=== PATIENT | male | born 1945 | race Caucasian/White ===

== ENCOUNTER 2024-03-17 12:38 | Emergency (ER) | payer MEDICARE, SELFPAY ==
--- NOTE | ~2024-03-17 | CT_ITS ---
EXAMINATION: CT abdomen pelvis w con DATE: 03/17/2024 18:39 INDICATION: Abdominal pain. TECHNIQUE: Computed tomography (CT) of the abdomen and pelvis was performed with 100 mL Omnipaque 350 intravenous contrast. Automated exposure control and iterative reconstruction technique were employe d. The dose-length product was 686.59 mGy-cm. COMPARISON: Abdomen ultrasound 03/17/2024 FINDINGS: The visualized portions of the lung bases demonstrate mild atelectasis. There are airspace opacities with air bronchograms in right lower lobe, consistent with pneumonia. No pleural effusion. The heart size is normal. There are coronary artery calcifications. No pericardial effusion. There ar e cysts in the liver measuring up to 7 mm. There are gallstones in the gallbladder, which is normal i n size. The common duct is mildly dilated to 9 mm. The spleen, pancreas, and adrenal glands are jose l. There are cysts in the kidneys measuring up to 14 mm on the right. The prostate is mildly enlarged . There are bilateral inguinal hernias containing fat. There is diverticulosis of the colon without e vidence of diverticulitis. There are no dilated loops of bowel. The appendix is normal. There are no pathologically enlarged lymph nodes. There is no free intraperitoneal fluid. There is a supraumbilica l ventral hernia containing fat. There is mild thoracic and lumbar spondylosis. IMPRESSION: 1. Right lower lobe pneumonia. 2. Mildly dilated common duct. 3. Supraumbilical ventral hernia containing fat. Reviewed, dictated and finalized at location A. ER CUTTER
--- NOTE | ~2024-03-17 | US_ITS ---
EXAMINATION: US abdomen limited DATE: 03/17/2024 17:13 INDICATION: Right upper quadrant abdominal pain. TECHNIQUE: Multiple grayscale and Doppler ultrasound images of the abdomen were obtained. COMPARISON: None FINDINGS: The visualized portions of the head, body, and tail of the pancreas are normal. The liver i s normal without focal lesion. There is normal flow in main portal vein. The gallbladder is normal si ze contains sludge. No gallstones or gallbladder wall thickening.. The common duct is normal and david ures 5 mm. IMPRESSION: 1. Gallbladder sludge. No evidence of acute cholecystitis. Reviewed, dictated and finalized at location A. FORMER
[2024-03-17 13:06] VITALS: BP 141/44; PULSE 82; RESP 20; TEMP 36.6; O2SAT 98
--- NOTE | 2024-03-17 14:09 | ED_ITS ---
HPI - General Adult General Chief complaint: Abdominal Pain Stated complaint: abd pain Time Seen by Provider: 03/17/24 14:09 Focused HPI: Guille Grande is a 78 y/o male who presents with today with reports of waking up with mid abdominal pain, he also states that he is having all over joint pain that started today. He states he went to see his mom here in the hospital and felt like he was going to pass out so he came down here. His last BM was today - he states it feels like he needs to have a BM but cant / states he feels nausea but has not vomited Denies chest pain / denies SOB - hx of htn GENERAL: Well-appearing, well-nourished, and in no acute distress. HEAD: Normocephalic, atraumatic. CHEST: Clear to auscultation. ?No respiratory distress. HEART: Regular rate and rhythm.? NEURO: ?Alert and oriented x3. ABD- abdomen soft/ bowel sounds present pain to the mid abdomen Patient screened in triage and initial orders placed.? ?Additional care and disposition to be based upon?diagnostic testing and treatment. Related Data Allergies Allergy/AdvReac Type Severity Reaction Status Date / Time No Known Allergies Allergy Verified 03/17/24 12:39 Course Vital Signs Vital signs: Vital Signs Temperature 36.6 C 03/17/24 13:06 Pulse Rate 82 03/17/24 13:06 Respiratory Rate 20 03/17/24 13:06 Blood Pressure 141/44 H 03/17/24 13:06 Pulse Oximetry 98 03/17/24 13:06 Oxygen Delivery Room Air 03/17/24 13:06 Temperature 36.6 C 03/17/24 13:06 Pulse Rate 87 03/17/24 19:09 Respiratory Rate 19 03/17/24 19:09 Blood Pressure 109/51 L 03/17/24 19:09 Pulse Oximetry 97 03/17/24 19:09 Oxygen Delivery Room Air 03/17/24 13:06 Medical Decision Making Vital Signs Vital Signs: Vital Signs Temperature 36.6 C 03/17/24 13:06 Pulse Rate 82 03/17/24 13:06 Respiratory Rate 20 03/17/24 13:06 Blood Pressure 141/44 H 03/17/24 13:06 Pulse Oximetry 98 03/17/24 13:06 Oxygen Delivery Room Air 03/17/24 13:06 Temperature 36.6 C 03/17/24 13:06 Pulse Rate 87 03/17/24 19:09 Respiratory Rate 19 03/17/24 19:09 Blood Pressure 109/51 L 03/17/24 19:09 Pulse Oximetry 97 03/17/24 19:09 Oxygen Delivery Room Air 03/17/24 13:06 Lab Data 03/17/24 14:32 03/17/24 16:13 Labs: Lab Results 03/17/24 03/17/24 03/17/24 Range/Units 14:32 16:13 16:29 WBC 10.4 H (4.5-10.0) K/mm3 RBC 3.97 L (4.6-6.20) M/mm3 Hgb 12.5 L (14.0-18.0) g/dL Hct 37.4 L (42.0-52.0) % MCV 94.2 (80-100) fl MCH 31.5 (26-34) pg MCHC 33.4 (32-36) g/dl RDW 13.2 (11.5-14.5) % Plt Count 142 L (150-375) k/mm3 MPV 12.0 H (7.4-10.4) fl Immature Gran % (Auto) 0.3 (0-0.5) % Neut % (Auto) 91.9 H (45.5-73.1) % Lymph % (Auto) 3.8 L (18.3-44.2) % [place] % (Auto) 3.7 (2.6-8.5) % Eos % (Auto) 0.1 (0-4.4) % Baso % (Auto) 0.2 (0.2-1.2) % Lymph # (Auto) 0.40 L (0.9-3.2) K/mm3 [place] # (Auto) 0.4 (0.1-0.6) K/mm3 Eos # (Auto) 0.0 (0-0.3) K/mm3 Baso # (Auto) 0.0 (0.0-0.1) K/mm3 Abs Immat Gran (auto) 0.03 (0.00-0.031) K/mm3 Absolute Neuts (auto) 9.6 H (1.3-6.7) K/mm3 Absolute Nucleated RBC 0.000 (0.0-0.012) K/mm3 Nucleated RBC % 0.0 (0.0-0.2) % % Immature Plt Fraction 8.5 (0.9-11.2) % Sodium 135 L (137-145) mmol/L Potassium 3.2 L (3.4-5.0) mmol/L Chloride 97 L (98-107) mmol/L Carbon Dioxide 29 (22-30) mmol/L Anion Gap 9 (4-12) mmol/L BUN 23 H (9-20) mg/dL Creatinine 0.77 (0.7-1.3) mg/dL Estim Creat Clear Calc 78 ml/min Estimated GFR > 60 (59 - ) Glucose 95 (65-110) mg/dL Lactic Acid 1.3 (0.7-2.0) mmol/L Calcium 9.1 (8.4-10.2) mg/dL Total Bilirubin 3.6 H (0.2-1.3) mg/dL AST 744 H (17-59) U/L ALT 427 H (6-50) U/L Alkaline Phosphatase 104 (38-126) U/L Troponin I < 0.012 (0.000-0.034) ng/mL Total Protein 7.0 (6.3-8.2) g/dL Albumin 3.7 (3.5-5.1) g/dL Lipase 82 (23-300) U/L Urine Color Dark yellow (Yellow) Urine Appearance Turbid H (Clear) Urine pH 8.5 (5.0-9.0) Ur Specific [place] 1.016 (1.001-1.035) Urine Protein Trace (Negative) mg/dL Urine Glucose (UA) Negative (Negative) mg/dL Urine Ketones Negative (Negative) mg/dL Ur Blood (Man) Negative (Negative) Urine Nitrate Negative (Negative) Urine Bilirubin 1+ H (Negative) Urine Urobilinogen 1.0 (<2.0) mg/dL Leukocyte Esterase Rfl Trace H (Negative) OSCAR/UL Urine RBC 0-2 (0-2) /hpf Urine WBC 0-5 (0-3) /hpf Ur Squamous Epith Cells None seen (Few) /hpf Urine Bacteria None seen /hpf Urine Casts 0-2 Influenza A (RT-PCR) Negative (Negative) Influenza B (RT-PCR) Negative (Negative) RSV (RT-PCR) Negative (Negative) SARS-CoV-2 RNA (RT-PCR) Negative (Negative) Discharge Plan Discharge Clinical Impression: Right lower lobe pneumonia, Abdominal pain, epigastric, Transaminitis Patient Disposition: Home, Self-Care Condition: Stable Instructions: Antibiotic Form, Gastritis (DC), Pneumonia (ED), Transaminitis (ED) Additional Instructions: Antibiotics as directed until completed for right lower lobe pneumonia. Omeprazole as directed for the next 14 days to help with possible gastric reflux. Have close follow-up with your primary care physician regarding your elevated liver enzymes. I do recommend follow-up with GI as well. If you have any worsening symptoms please call or return to the emergency department. Patient Language: Setswana Prescriptions: New azithromycin 250 mg tablet See Rx Instructions .ROUTE .COMPLEX Qty: 6 0RF Rx Instructions: For 250 mg dose pack: take 500 mg today (day 1), then 250 mg for 4 days (days 2-5) omeprazole 20 mg capsule,delayed release(DR/EC) 20 mg PO DAILY 14 Days Qty: 14 0RF amoxicillin-pot clavulanate 875-125 mg tablet 1 tablet PO Q12H 7 Days Qty: 14 0RF Follow-up/Referrals: PHYSICIAN NOT ON STAFF,NONSTAFF [Non-Staff] - Dao Hernandez MD [Physician] -
--- NOTE | 2024-03-17 14:37 | PC.NURSE ---
IV access attempted X2. unsuccessful.
[2024-03-17 14:40] LABS: Basophils Percent Auto 0.2 % (0.2-1.2); Eosinophils Percent Auto 0.1 % (0-4.4); Hematocrit 37.4 % (42.0-52.0); Hemoglobin 12.5 g/dL (14.0-18.0); Immature Granulocyte Absolute 0.03 K/mm3 (0.00-0.031); Immature Granulocyte Percent A 0.3 % (0-0.5); Immature Platelet Fraction Pct 8.5 % (0.9-11.2); Lymphocytes Percent Auto 3.8 % (18.3-44.2); Mean Corpuscular HGB Conc 33.4 g/dl (32-36); Mean Corpuscular Hemoglobin 31.5 pg (26-34); Mean Corpuscular Volume 94.2 fl (80-100); Monocytes Absolute Auto 0.4 K/mm3 (0.1-0.6); Monocytes Percent Auto 3.7 % (2.6-8.5); Neutrophils Absolute Auto 9.6 K/mm3 (1.3-6.7); Neutrophils Percent Auto 91.9 % (45.5-73.1); Platelet Count Result 142 k/mm3 (150-375); Red Blood Count 3.97 M/mm3 (4.6-6.20); Red Cell Distribution Width 13.2 % (11.5-14.5); White Blood Count 10.4 K/mm3 (4.5-10.0)
[2024-03-17 15:14] LABS: Influenza A QL RT-PCR Negative (Negative); Influenza B QL RT-PCR Negative (Negative); RSV RNA, RT-PCR Negative (Negative); SARS-CoV-2 RNA PCR Negative (Negative)
[2024-03-17 16:16] VITALS: BP 131/64; PULSE 93; RESP 17; O2SAT 96
[2024-03-17 16:34] LABS: Lactic Acid Reflex 1.3 mmol/L (0.7-2.0)
[2024-03-17 16:38] LABS: Alanine Aminotransferase 427 U/L (6-50); Albumin Level 3.7 g/dL (3.5-5.1); Alkaline Phosphatase 104 U/L (38-126); Anion Gap 9 mmol/L (4-12); Aspartate Amino Transferase 744 U/L (17-59); Bilirubin,Total 3.6 mg/dL (0.2-1.3); Blood Urea Nitrogen 23 mg/dL (9-20); Calcium 9.1 mg/dL (8.4-10.2); Carbon Dioxide 29 mmol/L (22-30); Chloride 97 mmol/L (98-107); Estimated CRCL calculation 78 ml/min; Estimated Glomerular Filt Rate > 60; Glucose 95 mg/dL (65-110); Lipase 82 U/L (23-300); Potassium 3.2 mmol/L (3.4-5.0); Sodium 135 mmol/L (137-145)
[2024-03-17 16:42] LABS: Add Urine Microscopic? YES; Appearance Urine Turbid (Clear); Bacteria Urine None Seen /hpf; Bilirubin Urine 1+ (Negative); Blood Urine Negative (Negative); Color Urine Dark Yellow (Yellow); Glucose Urine UA Negative (Negative); Ketones Urine Negative (Negative); Leukocyte Esterase Ur Trace LEU/UL (Negative); Nitrate Urine Negative (Negative); Non Pathogenic Casts 0-2; Protein Urine Trace mg/dL (Negative); RBC Urine 0-2 /hpf (0-2); Specific Grav Ur 1.016 (1.001-1.035); Squamous Epithelial Cell Urine None Seen /hpf (Few); WBC Urine 0-5 /hpf (0-3); pH Urine 8.5 (5.0-9.0)
--- NOTE | 2024-03-17 16:54 | ED.GENADULT ---
HPI - General Adult General Chief complaint: Abdominal Pain Stated complaint: abd pain Time Seen by Provider: 03/17/24 14:09 History of Present Illness HPI narrative: 78-year-old male presents to the emergency department for evaluation for epigastric abdominal pain. Patient states that the symptoms happen frequently when he is lying flat in bed. Patient normally sleeps in a recliner but is visiting his mother and was a lying flat in a bed and had onset of symptoms at approximately 4:00 a.m.. Patient states symptoms persisted throughout the day until recently. Patient denies any cardiac history. Patient does have history of acid reflux. Patient does admit to drinking a few beers a week but denies any prior history of pancreatitis. Patient does report got history of fatty liver Related Data Allergies Allergy/AdvReac Type Severity Reaction Status Date / Time No Known Allergies Allergy Verified 03/17/24 12:39 Review of Systems Review of Systems: All systems reviewed & are unremarkable except as noted in HPI and below Exam Narrative: APPEARANCE: Well appearing, no pain, no distress, well-nourished. HEAD: normocephalic, atraumatic. EYES: PERRLA/EOMI, conjunctivae clear. NOSE: Normal no drainage EARS:TMS clear with good light reflex. THROAT: Pharynx clear, no exudate. NECK: Supple. No adenopathy, no masses. RESPIRATORY: Airway patent, respirations nonlabored. Clear to auscultation bilaterally, no rales, rhonchi, wheezing. CARDIOVASCULAR: Regular rate and rhythm without murmurs rubs or gallops. ABDOMINAL: Epigastric abdominal tenderness to palpation MUSCULOSKELETAL: Moves all extremities. Strength/ROM intact, No edema, No calf tenderness. NEURO: Alert. Cranial nerves II through XII intact. Grossly intact SKIN: Warm, dry. Normal Color Course Vital Signs Vital signs: Vital Signs Temperature 97.9 F 03/17/24 13:06 Pulse Rate 82 03/17/24 13:06 Respiratory Rate 20 03/17/24 13:06 Blood Pressure 141/44 H 03/17/24 13:06 Pulse Oximetry 98 03/17/24 13:06 Oxygen Delivery Room Air 03/17/24 13:06 Temperature 97.9 F 03/17/24 13:06 Pulse Rate 87 03/17/24 19:09 Respiratory Rate 19 03/17/24 19:09 Blood Pressure 109/51 L 03/17/24 19:09 Pulse Oximetry 97 03/17/24 19:09 Oxygen Delivery Room Air 03/17/24 13:06 Medical Decision Making [facility] Narrative Medical decision making narrative: 78-year-old male present emergency department for evaluation for epigastric pain that has since resolved. Patient is afebrile but does have a leukocytosis of 10.4 and hemoglobin of 12.5. Patient does have a potassium of 3.2 with normal kidney function. Patient did have elevation of T bili at 3.6 AST of 744 and ALT of 427. Patient does have history of fatty liver. Patient denies any right upper quadrant abdominal pain. Ultrasound was ordered to evaluate for cholecystitis and showed gallbladder such with no evidence of acute cholecystitis. Patient's lipase was not elevated, patient had normal cardiac enzymes. UA was negative for infection. Patient was negative for influenza RSV and for COVID. CT abdomen pelvis showed enlarged gallbladder and a right lower lobe pneumonia. Patient is being started on antibiotics for the right lower lobe pneumonia. Patient was encouraged of close follow-up with surgery and primary care physician regarding his liver enzymes and gallbladder sludge. Patient is also being encouraged to start on omeprazole for suspected gastric reflux. Patient will also be encouraged close follow-up with GI. Differential Diagnosis Differential Diagnosis: Pneumonia, COVID, RSV, influenza, ACS, gastritis, pancreatitis, fatty liver, pneumonia Vital Signs Vital Signs: Vital Signs Temperature 97.9 F 03/17/24 13:06 Pulse Rate 82 03/17/24 13:06 Respiratory Rate 20 03/17/24 13:06 Blood Pressure 141/44 H 03/17/24 13:06 Pulse Oximetry 98 03/17/24 13:06 Oxygen Delivery Room Air 03/17/24 13:06 Temperature 97.9 F 03/17/24 13:06 Pulse Rate 87 03/17/24 19:09 Respiratory Rate 19 03/17/24 19:09 Blood Pressure 109/51 L 03/17/24 19:09 Pulse Oximetry 97 03/17/24 19:09 Oxygen Delivery Room Air 03/17/24 13:06 Lab Data Lab results reviewed: Yes I reviewed the patient's lab results. 03/17/24 14:32 03/17/24 16:13 Labs: Lab Results 03/17/24 03/17/24 03/17/24 Range/Units 14:32 16:13 16:29 WBC 10.4 H (4.5-10.0) K/mm3 RBC 3.97 L (4.6-6.20) M/mm3 Hgb 12.5 L (14.0-18.0) g/dL Hct 37.4 L (42.0-52.0) % MCV 94.2 (80-100) fl MCH 31.5 (26-34) pg MCHC 33.4 (32-36) g/dl RDW 13.2 (11.5-14.5) % Plt Count 142 L (150-375) k/mm3 MPV 12.0 H (7.4-10.4) fl Immature Gran % (Auto) 0.3 (0-0.5) % Neut % (Auto) 91.9 H (45.5-73.1) % Lymph % (Auto) 3.8 L (18.3-44.2) % [place] % (Auto) 3.7 (2.6-8.5) % Eos % (Auto) 0.1 (0-4.4) % Baso % (Auto) 0.2 (0.2-1.2) % Lymph # (Auto) 0.40 L (0.9-3.2) K/mm3 [place] # (Auto) 0.4 (0.1-0.6) K/mm3 Eos # (Auto) 0.0 (0-0.3) K/mm3 Baso # (Auto) 0.0 (0.0-0.1) K/mm3 Abs Immat Gran (auto) 0.03 (0.00-0.031) K/mm3 Absolute Neuts (auto) 9.6 H (1.3-6.7) K/mm3 Absolute Nucleated RBC 0.000 (0.0-0.012) K/mm3 Nucleated RBC % 0.0 (0.0-0.2) % % Immature Plt Fraction 8.5 (0.9-11.2) % Sodium 135 L (137-145) mmol/L Potassium 3.2 L (3.4-5.0) mmol/L Chloride 97 L (98-107) mmol/L Carbon Dioxide 29 (22-30) mmol/L Anion Gap 9 (4-12) mmol/L BUN 23 H (9-20) mg/dL Creatinine 0.77 (0.7-1.3) mg/dL Estim Creat Clear Calc 78 ml/min Estimated GFR > 60 (59 - ) Glucose 95 (65-110) mg/dL Lactic Acid 1.3 (0.7-2.0) mmol/L Calcium 9.1 (8.4-10.2) mg/dL Total Bilirubin 3.6 H (0.2-1.3) mg/dL AST 744 H (17-59) U/L ALT 427 H (6-50) U/L Alkaline Phosphatase 104 (38-126) U/L Troponin I < 0.012 (0.000-0.034) ng/mL Total Protein 7.0 (6.3-8.2) g/dL Albumin 3.7 (3.5-5.1) g/dL Lipase 82 (23-300) U/L Urine Color Dark yellow (Yellow) Urine Appearance Turbid H (Clear) Urine pH 8.5 (5.0-9.0) Ur Specific [place] 1.016 (1.001-1.035) Urine Protein Trace (Negative) mg/dL Urine Glucose (UA) Negative (Negative) mg/dL Urine Ketones Negative (Negative) mg/dL Ur Blood (Man) Negative (Negative) Urine Nitrate Negative (Negative) Urine Bilirubin 1+ H (Negative) Urine Urobilinogen 1.0 (<2.0) mg/dL Leukocyte Esterase Rfl Trace H (Negative) OSCAR/UL Urine RBC 0-2 (0-2) /hpf Urine WBC 0-5 (0-3) /hpf Ur Squamous Epith Cells None seen (Few) /hpf Urine Bacteria None seen /hpf Urine Casts 0-2 Influenza A (RT-PCR) Negative (Negative) Influenza B (RT-PCR) Negative (Negative) RSV (RT-PCR) Negative (Negative) SARS-CoV-2 RNA (RT-PCR) Negative (Negative) Discharge Plan Discharge Clinical Impression: Right lower lobe pneumonia, Abdominal pain, epigastric, Transaminitis Patient Disposition: Home, Self-Care Condition: Stable Instructions: Antibiotic Form, Gastritis (DC), Pneumonia (ED), Transaminitis (ED) Additional Instructions: Antibiotics as directed until completed for right lower lobe pneumonia. Omeprazole as directed for the next 14 days to help with possible gastric reflux. Have close follow-up with your primary care physician regarding your elevated liver enzymes. I do recommend follow-up with GI as well. If you have any worsening symptoms please call or return to the emergency department. Patient Language: Indonesian Prescriptions: New azithromycin 250 mg tablet See Rx Instructions .ROUTE .COMPLEX Qty: 6 0RF Rx Instructions: For 250 mg dose pack: take 500 mg today (day 1), then 250 mg for 4 days (days 2-5) omeprazole 20 mg capsule,delayed release(DR/EC) 20 mg PO DAILY 14 Days Qty: 14 0RF amoxicillin-pot clavulanate 875-125 mg tablet 1 tablet PO Q12H 7 Days Qty: 14 0RF Follow-up/Referrals: PHYSICIAN NOT ON STAFF,NONSTAFF [Non-Staff] - Dao Hernandez MD [Physician] -
[2024-03-17] MEDS: FAMOTIDINE 20 MG/2 ML VIAL IV PUSH (17:07)
[2024-03-17] MEDS: PANTOPRAZOLE SODIUM IV 40 MG VIAL IV PUSH (17:08)
[2024-03-17] MEDS: BELLADONNA ALK/PHENOB ELIX 10 ML, MAG HYDROX/ALUMINUM HYD/SIMETH 30 ML, LIDOCAINE 2% VI... PO (17:12)
--- OUTSIDE RECORDS SUMMARY | 2024-03-17 17:17 | XMS_ITS | Clinical Summary ---
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 This disclosure is being madepursuant to the Care Everywhere program and may not contain all information available regarding this patient. Last updated 17.[facility] Allergies No known active allergies Medications * Be aware that medications may not be up to date on this document. Alwaysverify current medications with the patient. Medication Sig Dispensed Refills Start Date End Date Status atenolol-chlorthali done (TENORETIC 100) 100-25 MG tablet Take 1 (one) tablet by mouth once daily 06/13/2021 Active finasteride (PROSCAR) 5 MG tablet Take 1 (one) tablet by mouth once daily 06/13/2021 Active colchicine 0.6 MG tablet Take 1 (one) tablet by mouth once daily 5 tablet 08/27/2021 Active Additional Information Patient not taking.Informant: Patient, Reported on 04/15/2023 lovastatin (Mevacor) 40 MG tablet 1 tablet Orally Once a day for 90 days Active lisinopril (Prinivil; Zestril) 20 MG tablet 1 tablet Orally Once a day for 90 days Active calcium carbonate (Tums) 500 MG chew tablet Oral as needed Active Ascorbic Acid 100 MG Oral daily Active fish oil/omega-3 fatty acids (Promega;Cardi-Omeg a 3) 1000 MG capsule 1 Oral daily Active Active Problems No known active problems Immunizations Name Administration Dates Next Due FLU VACCINE TRI IIV3 SPLIT IM (FLUVIRIN) 013 INFLUENZA VACCINE, HIGH-DOSE , TRIV. (FLUZONE HIGH-DOSE TRIVALENT; 65Y+) (HD-IIV3) 11/15/2022,11/15/2021,11/15/2020 Social History Tobacco Use Types Packs/Day Years Used Date Smoking Tobacco: Former Cigarettes Smokeless Tobacco: Never Tobacco Cessation:Counseling Given: Not Answered Alcohol Use Standard Drinks/Week Comments Yes 12 (1 standard drink = 0.6 oz pu re alcohol) PHQ-2 Answer Date Recorded Patient Health Questionnaire-2 Score 0 04/15/2023 Sex and Gender Information Value Date Recorded Sex Assigned at Not on file Gender Identity Not on file Sexual Orientation Not on file Last Filed Vital Signs Vital Sign Reading Time Taken Comments Blood Pressure 155/65 04/15/2023 2:21 PM [employer]ATION [employer] Pulse 45 04/15/2023 2:21 PM [employer]ATION [employer] Temperature 36.4 ??C (97.5 ??F) 04/15/2023 2:21 PM CS T Respiratory Rate 16 04/15/2023 2:21 PM [employer]ATION OPER[employer] Oxygen Saturation 97% 04/15/2023 2:21 PM [employer]ATION OPER[employer] Inhaled Oxygen Concentration - - Weight 96.3 kg (212 lb 3.2 oz) 04/15/2023 2:21 P M [employer] Height 182.9 cm (6') 04/15/2023 2:21 PM [employer]ATION OPERATOR [employer] Body Mass Index 28.78 04/15/2023 2:21 PM [employer]ATION OPERATOR [employer] Plan of Treatment Health Maintenance Due Date Last Done Comments MEDICARE AWV ? 12 MONTHS 1945 HEPATITIS C SCREENING 12/19/1965 DTAP/TDAP/TD VACCINES (1 - Tdap) 12/23/1966 PNEUMOCOCCAL VACCINE 50+ (1 of 1 - PCV) 12/23/1997 ZOSTER VACCINE (1 of 2) 12/23/1997 Respiratory Syncytial Virus (RSV) Vaccine Pt: or over 60 yrs (1 - 1-dose 75+ series) 12/23/2022 COVID-19 VACCINE ( - season) 2023 12/26/2020, 06/14/2020, 05/24/2020 INFLUENZA VACCINE (#1) 2023 3, 11/15/2021, 11/15/2020, Additional history exists DEPRESSION SCREENING 02/19/2024 04/15/2023, 04/05/2022, 08/25/2021 HEPATITIS B VACCINE Aged Out No longe r eligible based on patient's age to complete this topic HIB VACCINE Aged Out No longer eligi ble based on patient's age to complete this topic HPV VACCINE Aged Out No longer eligi ble based on patient's age to complete this topic MENINGOCOCCAL (Group B) VACCINE Aged Out No longer eligible based on patient's age to complete this topic MENINGOCOCCAL VACCINE Aged Out No crispin fadi eligible based on patient's age to complete this topic Care Teams Continuous Mining Machine Coal Miner Relationship Specialty Start Date End Date Jason Espinosa MD [address] [place] [address] PCP - General Family Medicine 08/25/21
--- OUTSIDE RECORDS SUMMARY | 2024-03-17 17:17 | XMS_ITS ---
Author Organization [facility] Address [address] [place] [address] Care Team Providers Care Bit Gatherer Name Role Phone OlliealokJason garcia Primary Care Provider Allergies Allergen (clinical drug ingredient) Drug/Non Drug Allergy documented on EMR Reaction Allergy Type Onset Date Status No Known Drug Allergy Unknown Drug Allergy Active REASON FOR VISIT 6 MONTH F/U Medications Medication SIG (Take, Route, Frequency, Duration) Notes Start Date End Date Status Meloxicam 15 MG 1 tablet Orally Once a day for 90 days 07/13/2022 Active Lovastatin 40 MG 1 tablet Orally Once a day for 90 days Active Finasteride 5 MG 1 tablet Orally Once a day for 90 days Active Lisinopril 20 MG 1 tablet Orally Once a day for 90 days Active Atenolol-Chlorthalidon e 100-25 MG 1 tablet Orally Once a day for 90 days Active Vitamin D 2000 UNIT Oral daily Active Tornado 3 1000 MG 1 Oral daily A ctive Tums 500 MG Oral as needed Act carter Vitamin C 100 MG Oral daily Ac tive Multivitamins - Oral Acti ve Relief Factor, 1 pack BID Active Ocuvite 3 daily Active Acyclovir 800 MG Oral for 10 Days Active Metamucil 63 Oral Active Supplements Balance of Natur e Fruit & Veg vitamins Active Social History Tobacco Use: Social History Observation Description Date Details (start date - stop date) Former Smoker NA - NA Tobacco Use/Smoking Question Answer Notes Are you a: former smoker Tobacco use other than smoking: Question Answer Notes Are you an other tobacco user? No Problems Problem Type SNOMED Code ICD Code Onset Dates Problem Status W/U Status Risk Notes Problem Body mass index 30.00 to 34.99 ([id number] ) BMI 31.0-31.9, ADULT (V85.31) (Z68.31) Active confirmed Problem Leukocytosis (091196494) LEUKOCYTOSIS NOS (288.60) (D72.829) Active confirmed Vital Signs Weight 215 lbs 02/13/2024 Height 69.25 in 02/13/2024 BMI 31.52 kg/m2 02/13/2024 Blood pressure systolic 130 mm Hg 02/13/20 24 Blood pressure diastolic 65 mm Hg 024 Heart Rate 46 /min 02/13/2024 Weight-kg 97.52 kg 02/13/2024 BP sitting, right arm, stand andi adult cuff. 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 ; Class 1 obesity E66.811 ; BMI 31.0-31.9, ADULT (V85.31) Z68.31 and ELEVATED LFTS R79.89 Assessments Encounter Date Diagnosis (ICD Code) Assessment Notes Treatment Notes Treatment Clinical Notes Section Notes 02/13/2024 Essential (primary) hypertension (ICD-10 - I10) condition controlled, continue same 02/13/2024 DYSLIPIDEMIA (ICD-10 - E78.5) lab pending, follow up with results 02/13/2024 ELEVATED TSH (ICD-10 - R94.6) condition controlled, continue same 02/13/2024 LEUKOCYTOSIS NOS (288.60) (ICD-10 - D72.829) 02/13/2024 THROMBOCYTOPENIA (ICD-10 - D69.6) condition controlled, continue same 02/13/2024 IRREGULAR HEART RHYTHM (ICD-10 - I49.9) condition controlled, continue same 02/13/2024 SINUS BRADYCARDIA (ICD-10 - R00.1) unchanged, continue same 02/13/2024 MILD INTERMITTENT ASTHMA WITHOUT COMPLICATION (ICD-10 - J45.20) condition controlled, continue same 02/13/2024 Benign prostatic hyperplasia without lower urinary tract symptoms (ICD-10 - N40.0) condition controlled, continue same 02/13/2024 Gout, unspecified (ICD-10 - M10.9) stable lab, cont same 02/13/2024 OSTEOARTHROSIS, GENERALIZED, INVOLVING MULTIPLE SITES (ICD-10 - M15.9) unchanged, continue same 02/13/2024 MACULAR DEGENERATION (SENILE) OF RETINA (ICD-10 - H35.30) unchanged, continue same 02/13/2024 Class 1 obesity (ICD-10 - E66.811) 02/13/2024 BMI 31.0-31.9, ADULT (V85.31) (ICD-10 - Z68.31) 02/13/2024 ELEVATED LFTS (ICD-10 - R79.89) 02/13/2024 Other Plan Of Treatment Medication Medication Name Sig Start Date Stop Date Notes Meloxicam 15 MG 1 tablet Orally Once a day for 90 days 07/13/2022 Lovastatin 40 MG 1 tablet Orally Once a day for 90 days Finasteride 5 MG 1 tablet Orally Once a day for 90 days Lisinopril 20 MG 1 tablet Orally Once a day for 90 days Atenolol-Chlorthalidone 100- 25 MG 1 tablet Orally Once a day for 90 days Treatment Notes Assessment Notes Essential (primary) hypertension conditi on controlled, continue same DYSLIPIDEMIA lab pending, follow up with results ELEVATED TSH condition controlled , continue same THROMBOCYTOPENIA condition controlled , continue same IRREGULAR HEART RHYTHM condition control led, continue same SINUS BRADYCARDIA unchanged, continue same MILD INTERMITTENT ASTHMA WITHOUT COMPLIC ATION condition controlled, continue same Benign prostatic hyperplasia without lower urinary tract symptoms condition controlled, continue same Gout, unspecified stable lab, cont epi e OSTEOARTHROSIS, GENERALIZED, INVOLVING MULTIPLE SITES unchanged, continue same MACULAR DEGENERATION (SENILE) OF RETINA unchanged, continue same Future Test Test Name Order Date CBC (Complete Blood Count) 03/20/2024 CMP (Comprehensive Metabolic Panel) 02/20 CMP (Comprehensive Metabolic Panel) 07/20 Lipid Profile 08/13/2024 PSA 08/13/2024 Next Appt Details Follow Up: 6 Months, Reason: Provider Name:Jason sharma, 08/12/2024 10:30:00 AM, [address] [place], [place], [id number], Progress Notes * AARON OBREGON BDOB:1945 (78 yo M)Acc No.[id number]:02/13/2024 Progress Notes Patient:?AARON OBREGON B Provider:?Jason Espinosa MD :1945???Age:78 Y???Sex:Male Delbert e:02/13/2024 Address:[facility], [address], [facility] [place] Subjective: * Chief Complaints: * ???6 MONTH F/U * HPI: ???Hypertension:?Denies : Symptom(s) of high blood pressure include(d).?Denies : End organ damage from hypertension.?Patient presents for follow-up of hypertension?which is long-standing , which was diagnosed years ago , considered benign.?Therapy has included lifestyle changes including?decreased salt intake , improved nutrition , increased exercise.?Medication(s) for hypertension include?lisinopril , atenolol, chlorthalidone.?Response to medication(s)?has been good.?Hyperlipidemia:?Patient presents for follow-up of hyperlipidemia?that is long-standing , that was diagnosed years ago , and is considered part of a familial syndrome.?Therapy has included lifestyle changes?including improved nutrition , including increased exercise , including weight loss.?Medication(s) for hyperlipidemia include?lovastatin.?Benign prostatic hyperplasia:?Denies : Current symptoms include.?Benign prostatic hyperplasia (BPH) was diagnosed?years ago.?Current medication(s) include?tamsulosin , finasteride.? * ROS:?General:?Change in appetite?denies.?Chills?denies.?Fatigue?denies.?Fever?denies.?Headache?denies.?N ight sweats?denies.?Weight loss?denies.?Ophthalmologic:?Blurry vision?denies.?Dry eye?denies.?Eye Pain?denies.?ENT:?Decreased hearing?denies.?Nosebleed?denies.?Vision loss?denies.?Endocrine:?Denies?Cold intolerance.?Denies?Diabetes.?Dizziness?denies.?Excessive sweating?denies.?Excessive thirst?denies.?Denies?Frequent urination.?Hair loss?denies.?Denies?Heat intolerance.?Thyroid problems?denies.?Respiratory:?Denies?COPD.?Denies?Asthma.?Denies?Breathing problems.?Cough?denies.?Shortness of breath?denies.?Wheezing?denies.?Cardiovascular:?Denies?Heart disease.?Denies?Arrhythmia.?Denies?Congestive Heart Failure.?Denies?Edema.?Hypertension? Admits.?Hyperlipidemia? Admits.?Denies?Chest pain.?Denies?Palpitations.?Gastrointestinal:?Abdominal pain?denies.?Diarrhea?denies.?Heartburn?denies.?Nausea?denies.?Vomiting?denies.?Hematology:?Bleeding problems?denies.?Easy bruising?denies.?Men Only:?Denies?Dribbling after urination.?Genitourinary:?Blood in urine?denies.?Painful urination?denies.?Musculoskeletal:?Arthritis/Arthralgia?denies.?Muscle aches?denies.?Skin:?Dry skin?denies.?Itching?denies.?Problems with healing?denies.?Problems with scarring?denies.?Rash?denies.?Skin lesion(s)?denies .?Neurologic:?Memory loss?denies.?Seizures?denies.?Tingling/Numbness?denies.?Psychiatric:?Anxiety?denies.?Depressed mood?denies.? * Medical History:? * Surgical History:?Cataract E xtraction-Right, Prostate Surgery, prostate BX [place] Sees Dr Arango in [place] and had BX in 2006 will have another in July [id number] Stenosis, as an infant-Performed in [place] [id number] of right inguinal hernia with mesh, Performed at [facility], 2014-01-20 * Hospitalization/Major Diagno stic Procedure:? * Family History:?Migrated Fam yogesh History: CATARACT SECONDARY TO GLAUCOMATOUS FLECKS (SUBCAPSULAR) (366.31), GLAUCOMA ASSOCIATED WITH VASCULAR DISORDER, Heart Disease, Father, Mother, Hyperlipidemia, Father, Mother, Hypertension, Father, Mother, Prostate Cancer, Brother.? * Social History:?Tobacco Use:?Tobacco Use/Smoking?Are you a:?former smoker ?Tobacco use other than smoking?Are you an other tobacco user??No * Medications:?TakingLovastati n 40 MG Tablet 1 tablet Orally Once a day Lisinopril 20 MG Tablet 1 tablet Orally Once a day Finasteride 5 MG Tablet TAKE 1 TABLET BY MOUTH EVERY DAY Atenolol-Chlorthalidone 100-25 MG Tablet TAKE 1 TABLET BY MOUTH EVERY DAY Relief , Notes to Pharmacist: Factor, 1 pack BIDMeloxicam 15 MG Tablet 1 tablet Orally Once a day Acyclovir 800 MG Tablet Oral Ocuvite , Notes to Pharmacist: 3 dailySupplements , Notes to Pharmacist: Balance of Nature Fruit & Veg vitaminsMetamucil 63 Oral Multivitamins - Capsule Oral Vitamin C 100 MG Tablet Oral daily Tums 500 MG Tablet Chewable Oral as needed Tornado 3 1000 MG Capsule 1 Oral daily Vitamin D 2000 UNIT Tablet Oral daily Medication List reviewed and reconciled with the patientTaking Lovastatin 40 MG Tablet 1 tablet Orally Once a day Taking Lisinopril 20 MG Tablet 1 tablet Orally Once a day Taking Finasteride 5 MG Tablet TAKE 1 TABLET BY MOUTH EVERY DAY Taking Atenolol-Chlorthalidone 100-25 MG Tablet TAKE 1 TABLET BY MOUTH EVERY DAY Taking Relief , Notes to Pharmacist: Factor, 1 pack BIDTaking Meloxicam 15 MG Tablet 1 tablet Orally Once a day Taking Acyclovir 800 MG Tablet Oral Taking Ocuvite , Notes to Pharmacist: 3 dailyTaking Supplements , Notes to Pharmacist: Balance of Nature Fruit & Veg vitaminsTaking Metamucil 63 Oral Taking Multivitamins - Capsule Oral Taking Vitamin C 100 MG Tablet Oral daily Taking Tums 500 MG Tablet Chewable Oral as needed Taking Tornado 3 1000 MG Capsule 1 Oral daily Taking Vitamin D 2000 UNIT Tablet Oral daily Medication List reviewed and reconciled with the patient * Allergies:?No Known Drug All ergyno[Allergies Verified] Objective: * Vitals:?Wt:215lbs, Ht: 69.25 in, BMI:31.52Index, BP:130/65mm Hg, HR:46/min, Pain scale:01-10, Wt-k.52 kg. BP sitting, right arm, standard adult cuff. * Examination: ???Physical Examination: ?GENERAL APPEARANCE:?in no acute distress, well developed, well nourished.?HEAD:?normocephalic, atraumatic.?NECK/THYROID:?neck supple, full range of motion,?carotid?normal, no lymphadenopathy, no jvd, no masses,?thyroid normal, trachea midline.?SKIN:?no suspicious lesions on exposed skin, warm and dry.?HEART:?no murmurs, regular rate and rhythm, S1, S2 normal.?LUNGS:?clear to auscultation bilaterally.?ABDOMEN:?normal, bowel sounds present, soft, nontender, nondistended , no hepatosplenomegaly , no masses palpable.?EXTREMITIES:?no clubbing, cyanosis, or edema.?NEUROLOGIC:?motor strength normal upper and lower extremities, sensory exam intact.?PSYCHIATRIC?alert and oriented to person, place and time.? Assessment: * Assessment: 1.?Essential (primary) hyper tension - I10???2.?DYSLIPIDEMIA - E78.5???3.?ELEVATED TSH - R94.6???4.?LEUKOCYTOSIS NOS (288.60) - D72.829???5.?THROMBOCYTOPENIA - D69.6???6.?IRREGULAR HEART RHYTHM - I49.9???7.?SINUS BRADYCARDIA - R00.1???8.?MILD INTERMITTENT ASTHMA WITHOUT COMPLICATION - J45.20???9.?Benign prostatic hyperplasia without lower urinary tract symptoms - N40.0???10.?Gout, unspecified - M10.9?? 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 Plan: * Treatment: 2.?DYSLIPIDEMIA? Refill Lovastatin Tablet, 40 MG, 1 tablet, Orally, Once a day, 90 days, 90 Tablet, Refills 3.?LAB: CMP (Comprehensive Metabolic Panel) (Ordered for 08/13/2024) ?LAB: Lipid Profile (Ordered for 08/13/2024) Notes: lab pending, follow up with results?? 3.?ELEVATED TSH? Notes: condition controlled, continue same?? 4.?LEUKOCYTOSIS NOS (288.60) ?LAB: CBC (Complete Blood Count) (Ordered for 03/20/2024) 5.?THROMBOCYTOPENIA?LAB: CBC (Complete Blood Count) (Ordered for 03/20/2024) Notes: condition controlled, continue same?? 6.?IRREGULAR HEART RHYTHM? Notes: condition controlled, continue same?? 7.?SINUS BRADYCARDIA? Notes: unchanged, continue same?? 8.?MILD INTERMITTENT ASTHMA WITHOUT COMPLICATION? Notes: condition controlled, continue same?? 9.?Benign prostatic hyperpla maddison without lower urinary tract symptoms? Refill Finasteride Tablet, 5 MG, 1 tablet, Orally, Once a day, 90 days, 90 Tablet, Refills 3.?LAB: PSA (Ordered for 08/13/2024) Notes: condition controlled, continue same?? 10.?Gout, unspecified? Refill Meloxicam Tablet, 15 MG, 1 tablet, Orally, Once a day, 90 days, 90 Tablet, Refills 1.?? Notes: stable lab, cont same?? 11.?OSTEOARTHROSIS, GENERALI ZED, INVOLVING MULTIPLE SITES? Notes: unchanged, continue same?? 12.?MACULAR DEGENERATION (SE NILE) OF RETINA? Notes: unchanged, continue same?? 13.?ELEVATED LFTS?LAB: CMP (Comprehensive Metabolic Panel) (Ordered for 03/20/2024) * * Procedure Codes:? * Follow Up:?6 Months * * S PICKER Sign off status: Completed true * Provider:?Jason Espinosa MD Date :?02/13/2024 Generated for Teresita smith/Kalli/eTransmitting on:?03/17/2024 05:16 PM PARTS PICKER History and Physical Notes * HPI (History of Present Illness) Category Sub-Category Detail Notes Category Not es Hyperlipidemia Patient presents for follow-up of hyperlipidemia that is long-standing , that was diagnosed years ago , and is considered part of a familial syndrome Therapy has included lifestyle changes i ncluding improved nutrition , including increased exercise , including weight loss Medication(s) for hyperlipidemia include lovastatin Hypertension Patient presents for follow-up of hypertension which is long-standing , which was diagnosed years ago , considered benign Symptom(s) of high blood pre ssure include(d) End organ damage from hypertension Therapy has included lifesty le changes including decreased salt intake , improved nutriti on , increased exercise Medication(s) for hypertension include l isinopril , atenolol, chlorthalidone Response to medication(s) has been good Benign prostatic hyperplasia Benign pros tatic hyperplasia (BPH) was diagnosed years ago Current symptoms include Current medication(s) include tamsulosin , finasteride Examination Category Sub-Category Detail Notes Category Not es Physical Examination GENERAL APPEARANCE: in no a cute distress, well developed, well nourished HEAD: normocephalic, atrau matic NECK/THYROID: neck supple, full ra nge of motion, carotid normal, no lymphadenopathy, no jvd, no masses, thyroid normal, trachea midline HEART: no murmurs, regular rate and rhythm, S1, S2 normal LUNGS: clear to auscultatio n bilaterally ABDOMEN: normal, bowel sounds present, soft, nontender, nondistended , no hepatosplenomegaly , no masses palpable NEUROLOGIC: motor strength jose l upper and lower extremities, sensory exam intact SKIN: no suspicious lesion s on exposed skin, warm and dry EXTREMITIES: no clubbing, cyanosi s, or edema PSYCHIATRIC alert and oriented t o person, place and time
--- OUTSIDE RECORDS SUMMARY | 2024-03-17 17:17 | XMS_ITS | Patient Health Summary ---
Author Organization [facility] Address [address] [place] [address] Care Team Providers Care Air Compressor Engineer Name Role Phone Jason Espinosa MD Primary Care Provider [phone] Note from [facility],non-owned Affiliates and Associated Physician Practices is amultiple site organization consisting of ambulatory clinics and hospital sitesin [place], [place], [place] and [place]. This disclosure is being madepursuant to the Care Everywhere program and may not contain all information available regarding this patient. Last updated 17.[facility] Allergies No known active allergies Medications * Be aware that medications may not be up to date on this document. Alwaysverify current medications with the patient. * atenolol-chlorthalidone (TENORETIC 100) 100-25 MG tablet(Started 06/13/2021) Take 1 (one) tablet by mouth once daily * finasteride (PROSCAR) 5 MG tablet(Started 06/13/2021) Take 1 (one) tablet by mouth once daily * colchicine 0.6 MG tablet(Started 08/27/2021) Take 1 (one) tablet by mouth once daily * lovastatin (Mevacor) 40 MG tablet 1 tablet Orally Once a day for 90 days * lisinopril (Prinivil; Zestril) 20 MG tablet 1 tablet Orally Once a day for 90 days * calcium carbonate (Tums) 500 MG chew tablet Oral as needed * Ascorbic Acid 100 MG Oral daily * fish oil/omega-3 fatty acids (Promega;Cardi-Butte 3) 1000 MG capsule 1 Oral daily Active Problems No known active problems Immunizations * FLU VACCINE TRI IIV3 SPLIT IM (FLUVIRIN)(Given 11/22/2012) * INFLUENZA VACCINE, HIGH-DOSE, TRIV. (FLUZONE HIGH-DOSE TRIVALENT; 65Y+) (HD-IIV3)(Given 11/15/2022, 11/15/2021, 11/15/2020) Social History Tobacco Use Types Packs/Day Years [...] Comments Blood Pressure 155/65 04/15/2023 2:21 PM COMPUTER ART INSTRUCTOR Pulse 45 04/15/2023 2:21 PM COMPUTER ART INSTRUCTOR Temperature 36.4 ??C (97.5 ??F) 04/15/2023 2:21 PM CS T Respiratory Rate 16 04/15/2023 2:21 PM COMPUTER ART INSTRUCTOR Oxygen Saturation 97% 04/15/2023 2:21 PM COMPUTER ART INSTRUCTOR Inhaled Oxygen Concentration - - Weight 96.3 kg (212 lb 3.2 oz) 04/15/2023 2:21 P M COMPUTER ART INSTRUCTOR Height 182.9 cm (6') 04/15/2023 2:21 PM COMPUTER ART INSTRUCTOR Body Mass Index 28.78 04/15/2023 2:21 PM COMPUTER ART INSTRUCTOR Procedures * XR FINGERS LEFT 2VW OR MORE(Performed 08/27/2021) Performed for Swelling of finger Results * XR FINGERS LEFT 2VW OR MORE (08/27/2021 8:20 PM CDT) Anatomical Region Laterality Modality Upper Extremity, Wrist / Hand Ra diographic Imaging 08/28/2021 9:54 AM CDT Impressions 08/28/2021 10:00 AM CDT IMPRESSION: 1. Soft tissue mineralization involving the volar and ulnar aspects of the distal interphalangeal joint. ??Exostosis versus chronic inflammatory processes are differential etiologies. *Reading Radiologist: DAVID OSACR on 08/28/2021 at 10:00 AM Narrative 08/28/2021 10:00 AM CDT EXAM: XR FINGERS LEFT 2VW OR MORE*[id number] INDICATION: ??75 years Male with swelling and redness involving the left index finger. COMPARISON: ??None FINDINGS: Frontal, lateral, and oblique radiographs of the left index finger demonstrate no bony fracture or dislocation. ?? 8 x 7 x 10 mm soft tissue mineralization is seen along the ulnar and volar aspect of the distal interphalangeal joint. ??There is no underlying cortical destruction or osteopenia. Procedure Note David Oscar MD - 08/28/2021 EXAM: XR FINGERS LEFT 2VW OR MORE*[id number] INDICATION: 75 years Male with swelling and redness involving the left index finger. COMPARISON: None FINDINGS: Frontal, lateral, and oblique radiographs of the left index finger demonstrate no bony fracture or dislocation. 8 x 7 x 10 mm soft tissue mineralization is seen along the ulnar and volar aspect of the distal interphalangeal joint. There is no underlying cortical destruction or osteopenia. IMPRESSION IMPRESSION: 1. Soft tissue mineralization involving the volar and ulnar aspects of the distal interphalangeal joint. Exostosis versus chronic inflammatory processes are differential etiologies. *Reading Radiologist: DAVID OSCAR on 08/28/2021 at 10:00 AM Keshawn Cantor MD DIAGNOSTIC LINHIN G ORDERABLES Care Teams Air Compressor Engineer Relationship Specialty Start Date End Date Jason Espinosa MD [address] [place] [id number] PCP - General Family Medicine 08/25/21
--- OUTSIDE RECORDS SUMMARY | 2024-03-17 17:17 | XMS_ITS ---
Author Organization [facility] Address [address] [place] [address] Care Team Providers Care Adult High School Instructor Name Role Phone Olliefabian Jason Primary Care Provider Encounters Encounter Location Date Provider Diagnosis [facility] [place] [facility] [address] [place], [place] [id number] 02/27/2024 Jason Espinosa ELEVATED LIVER ENZYMES R74.8 Assessments Encounter Date Diagnosis (ICD Code) Assessment Notes Treatment Notes Treatment Clinical Notes Section Notes 02/27/2024 ELEVATED LIVER ENZYMES (ICD-10 - R74.8) Plan Of Treatment Future Test Test Name Order Date CMP (Comprehensive Metabolic Panel) 07/2024 Next Appt Details Provider Name:Jason sharma, 08/12/2024 10:30:00 AM, [address] [place], [place], [id number], Progress Notes * AARON OBREGON BDOB:1945 (78 yo M)Acc No.[id number]:02/27/2024 Patient:?AARON OBREGON :1945???Age:78 Y???Sex:Male Address:[place] [address], [address], [place], [address] Subjective: * Chief Complaints: * ??? * Medical History:? * Surgical History:? * Hospitalization/Major Diagno stic Procedure:? * Medications:? Objective: * Vitals:? * Physical Examination:? Assessment: * Assessment: 1.?ELEVATED LIVER ENZYMES - R74.8 (Primary)??? Plan: * Treatment: * * Procedure Codes:? * true * Date:? Generated for Teresita smith/Kalli/Kevin on:?03/17/2024 05:17 PM HIDE MEASURING MACHINE OPERATOR
--- OUTSIDE RECORDS SUMMARY | 2024-03-17 17:17 | XMS_ITS ---
Author Organization [facility] Address [address] [place] [address] Care Team Providers Care Visual Merchandising Associate Name Role Phone Jason Espinosa Primary Care Provider REASON FOR VISIT Here for a blood pressure check and a flu shot. Immunizations Vaccine Route Administration Date Status Comme nts *Influenza, high dose seasonal (Fluzone) IM Intramuscular 11/12/2023 Administered Vital Signs Height 69.25 in 11/12/2023 Blood pressure systolic 132 mm Hg 11/12/19 24 Blood pressure diastolic 72 mm Hg 024 Heart Rate 52 /min 11/12/2023 Oximetry 96 % 11/12/2023 Encounters Encounter Location Date Provider Diagnosis [facility] [address] [place], [place] [id number] 11/12/2023 Jason Espinosa BENIGN ESSENTIAL HYPERTENSION I10 and Encounter for immunization Z23 Assessments Encounter Date Diagnosis (ICD Code) Assessment Notes Treatment Notes Treatment Clinical Notes Section Notes 11/12/2023 BENIGN ESSENTIAL HYPERTENSION (ICD-10 - I10) 11/12/2023 Encounter for immunization (ICD-10 - Z23) Plan Of Treatment Next Appt Details Provider Name:Jason sharma, 08/12/2024 10:30:00 AM, [address], [place], [place], [phone], Progress Notes * AARON OBREGON BDOB:1945 (77 yo M)Acc No.[id number]:11/12/2023 Patient:?RIPKA, AARON B Provider:?Jason Espinosa MD :1945???Age:77 Y???Sex:Male Delbert e:11/12/2023 Address:[place] [address], [address] [address] [address] [facility] [address] [id number] Subjective: * Chief Complaints: * ???Here for a blood pressure check and a flu shot. * Medical History:? * Surgical History:? * Hospitalization/Major Diagno stic Procedure:? * Medications:? Objective: * Vitals:?Ht: 69.25 in, BP:132 /72mm Hg, HR:52/min, Oxygen sat %:96%. Assessment: * Assessment: 1.?BENIGN ESSENTIAL HYPERTEN JUAREZ - I10 (Primary)?2.?Encounter for immunization - Z23? Plan: * Treatment: * * Immunizations:? *Influenza, high dose seasonal (Fluzone) : 0.5 mL (Route: Intramuscular) given by Rema Quintana on Left Deltoid (Encounter for immunization) * Procedure Codes:?04476 INFLU JEFERSON VACCINE SPLT PRSRV FREE INC [id number] ADMINISTRATION OF INFLUENZA VIRUS VACCIN * * Sign off status: Completed true * Provider:?Jason Espinosa MD Date :?11/12/2023 Generated for Teresita smith/Kalli/eTransmitting on:?03/17/2024 05:16 PM SEISMOGRAPH OBSERVER
--- OUTSIDE RECORDS SUMMARY | 2024-03-17 17:17 | XMS_ITS ---
Author Organization [facility] Address [id number] [place] [address] Care Team Providers Care Land Management Forester Name Role Phone Jason Espinosa MD Primary Care Physician + Problems This patient has no known problems. Allergies, Adverse Reactions, Alerts This patient has no known allergies or adverse reactions. Medications Ordered Medication Name Filled Medication Name Start Date Stop Date Current Medication? Ordering Clinician Indication Dosage Frequency Signature (SIG) Comments Components lovastatin (Mevacor) 40 MG tablet 04-15 14:24: 14 Yes 1 tablet Orally Once a day for 90 days lisinopril (Prinivil; Zestril) 20 MG tablet 04-15 14:24: 14 Yes 1 tablet Orally Once a day for 90 days calcium carbonate (Tums) 500 MG chew tablet 04-15 14:24: 14 Yes Oral as needed Ascorbic Acid 100 MG 04-15 14:24: 14 Yes Oral daily fish oil/omega-3 fatty acids (Promega;Ca rdi-Erie 3) 1000 MG capsule 04-15 14:24: 14 Yes 1 Oral daily colchicine 0.6 MG tablet 08-27 00:00: 00 Yes .6mg QD Take 1 (one) tablet by mouth once daily atenolol-ch lorthalidon e (TENORETIC 100) 100-25 MG tablet 06-13 00:00: 00 Yes 1{tbl} QD Take 1 (one) tablet by mouth once daily finasteride (PROSCAR) 5 MG tablet 06-13 00:00: 00 Yes 5mg QD Take 1 (one) tablet by mouth once daily Social History Social Habit Start Date Stop Date Comments History of tobacco use Gender identity Sexual orientation Alcoholic beverage intake 2023-04-15 00:00: 00:00:00 History of Social function 2023-04-15 00:00:00 2023-03 00:00:00 Tobacco use and exposure 2021-08-25 00:00:00 8 00:00:00 Sex [birth year] at 1945 00:00:00 1945 0 0:00:00 Smoking Status Start Date Stop Date Ex-smoker 2021-08-25 00:00:00 2021-08-25 0 0:00:00 Immunizations Ordered Immunization Name Filled Immunization Name Date Status Comments Refusal Reason INFLUENZA VACCINE, HIGH-DOSE, TRIV. (FLUZONE HIGH-DOSE TRIVALENT; 65Y+) (HD-IIV3) 2022-11-15 00:00:00 Completed INFLUENZA VACCINE, HIGH-DOSE, TRIV. (FLUZONE HIGH-DOSE TRIVALENT; 65Y+) (HD-IIV3) 2021-11-15 00:00:00 Completed INFLUENZA VACCINE, HIGH-DOSE, TRIV. (FLUZONE HIGH-DOSE TRIVALENT; 65Y+) (HD-IIV3) 2020-11-15 00:00:00 Completed FLU VACCINE TRI IIV3 SPLIT IM (FLUVIRIN) 2012-11-22 00:00:00 Completed Plan of Treatment Planned Activity Planned Date Details Comments Future Scheduled Test 2024-02-28 07:39:40 PNEUMO COCCAL VACCINE 50+ (1 of 1 - PCV) [code = PNEUMOCOCCAL VACCINE 50+ (1 of 1 - PCV)] Future Scheduled Test 2024-02-28 07:39:40 DEPRES JUAREZ SCREENING [code = DEPRESSION SCREENING] Future Scheduled Test 2024-01-02 07:52:44 MEDICA RE AWV ? 12 MONTHS [code = MEDICARE AWV ? 12 MONTHS] Future Scheduled Test 2024-01-02 07:52:44 HEPATI TIS C SCREENING [code = HEPATITIS C SCREENING] Future Scheduled Test 2024-01-02 07:52:44 Admini stration of third dose of vaccine product containing only acellular Bordetella pertussis and Clostridium tetani and Corynebacterium diphtheriae antigens (procedure) [code = 570981758] Future Scheduled Test 2024-01-02 07:52:44 ZOSTER VACCINE (1 of 2) [code = ZOSTER VACCINE (1 of 2)] Future Scheduled Test 2024-01-02 07:52:44 Respir atory Syncytial Virus (RSV) Vaccine Pt: or over 60 yrs (1 - 1-dose 75+ series) [code = Respiratory Syncytial Virus (RSV) Vaccine Pt: or over 60 yrs (1 - 1-dose 75+ series)] Future Scheduled Test 2024-01-02 07:52:44 COVID- 19 VACCINE ( season) [code = COVID-19 VACCINE ( season)] Future Scheduled Test 2024-01-02 07:52:44 Admini stration of vaccine product containing only Influenza virus antigen (procedure) [code = 77665064] Vital Signs Vital Name Observation Time Observation Value Commen ts Systolic blood pressure 2023-04-15 14:21:00 155 mm[Hg] Diastolic blood pressure 2023-04-15 14:21:00 65 mm[Hg] Heart rate 2023-04-15 14:21:00 45 /min Body temperature 2023-04-15 14:21:00 36.39 Laar Respiratory rate 2023-04-15 14:21:00 16 /min Body height 2023-04-15 14:21:00 182.9 cm Body weight 2023-04-15 14:21:00 96.253 kg BMI 2023-04-15 14:21:00 28.78 kg/m2 Oxygen saturation in Arteria l blood by Pulse oximetry 2023-04-15 14:21:00 97 %
--- OUTSIDE RECORDS SUMMARY | 2024-03-17 17:17 | XMS_ITS | Referral Summary ---
Author Organization [facility] Address [address] [facility] [place] [address] Care Team Providers Care Chute Greaser Name Role Phone Jason Espinosa MD Primary Care Provider [phone] Source Comments [facility],non-owned Affiliates and Associated Physician Practices is amultiple site organization consisting of ambulatory clinics and hospital sitesin [place], [place], [place] and [place]. This disclosure is being madepursuant to the Care Everywhere program and may not contain all information available regarding this patient. Last updated 17.[facility] Allergies No known active allergies Medications * [...] Comments Blood Pressure 155/65 04/15/2023 2:21 PM ENTRANCE GUARD Pulse 45 04/15/2023 2:21 PM ENTRANCE GUARD Temperature 36.4 ??C (97.5 ??F) 04/15/2023 2:21 PM CS T Respiratory Rate 16 04/15/2023 2:21 PM ENTRANCE GUARD Oxygen Saturation 97% 04/15/2023 2:21 PM ENTRANCE GUARD Inhaled Oxygen Concentration - - Weight 96.3 kg (212 lb 3.2 oz) 04/15/2023 2:21 P M ENTRANCE GUARD Height 182.9 cm (6') 04/15/2023 2:21 PM ENTRANCE GUARD Body Mass Index 28.78 04/15/2023 2:21 PM ENTRANCE GUARD Plan of Treatment Not on file Care Teams Chute Greaser Relationship Specialty Start Date End Date Jason Espinosa MD [address] [place] [address] PCP - General Family Medicine 08/25/21
--- OUTSIDE RECORDS SUMMARY | 2024-03-17 17:18 | XMS_ITS | Patient Health Record ---
Author Organization [facility] Address [address] [place] [address] Care Team Providers Care Flat Examiner Name Role Phone Jason Espinosa Primary Care Provider Batool Cruz Unavailable [phone] MiddlemistBlair Unavailable [phone] Allergies Allergen (clinical drug ingredient) Drug/Non Drug Allergy documented on EMR Reaction Allergy Type Onset Date Status No Known Drug Allergy Unknown Drug Allergy Active Results Component Value Reference Range Notes CBC (Complete Blood Count) Reviewed date:02/27/2024 03:30:39 PM Interpretation: Performing Lab: Notes/Report: Items were attached to this order: RETAIL LEASING AGENT WBC 11.1 3.8-10.8 10^3/uL RBC 4.04 4.40-5.80 10^6/uL Hemoglobin 12.8 13.8-17.2 g/dL Hematocrit 37.4 41.0-50.0 % MCV 92.6 80.0-100.0 fL MCH 31.7 27.0-33.0 pg MCHC 34.2 32.0-36.0 g/dL Platelet Count 240 130-400 10^3/uL Neutrophil % 71.6 46.0-69.0 % Lymphocyte % 14.7 19.0-39.0 % Monocytes % 11.9 0.0-13.0 % Eosinophil % 1.0 0.0-6.0 % Basophil % 0.3 0.0-1.0 % Neutrophil # 7.93 1.75-7.45 10^3/uL Lymphocyte # 1.62 0.72-4.21 10^3/uL Monocyte # 1.31 0.00-1.40 10^3/uL Eosinophil# 0.1 0.0-0.5 10^3/uL Basophil # 0.0 0.0-0.1 10^3/uL Immature Granulocytes % 0.5 0.0-1.0 % Immature Granulocyes # 0.05 0.00-0.10 10^3/uL NRBC # 0.00 0.00-0.10 10^6/uL NRBC % 0.0 0.0-1.0 % RDW-SD 45.90 35.00-55.00 fL RDW-CV 13.40 11.00-15.00 % MPV 11.0 9.4-12.4 fL CMP (Comprehensive Metabolic Panel) Reviewed date:02/27/2024 03:30:39 PM Interpretation: Performing Lab: Notes/Report: Items were attached to this order: RETAIL LEASING AGENT SODIUM 135 136-145 mEq/L POTASSIUM S 4.3 3.5-5.1 mEq/L CHLORIDE 98 98-107 mEq/L BICARBONATE 27 22-29 mmol/L Anion Gap 14 10-20 # GLUCOSEco 89 74-109 mg/dl UREA NITROGEN 16.8 8.0-23.0 MG/DL CREATININE 0.71 0.70-1.20 mg/dl B/C Ratio 24 5-30 # CALCIUM 9.2 8.6-10.3 mg/dl BILIRUBIN TOTAL 0.5 0.2-1.2 mg/dl TOTAL PROTEIN 7.1 6.4-8.3 g/dl ALBUMIN2 4.4 3.2-5.2 G/DL Globulin 2.7 1.5-3.8 gm/dL Albumin/Globulin Ratio 1.6 ALKALINE PHOSPHATASE 112 40-129 U/L ALT/SGPT 158 5-41 U/L AST (SGOT) 199 0-40 U/L Hemolysis 7.00 <20mg/dl = Normal 20-90mg/dl = Slight Hemolysis 90-150 mg/dl = Moderate Hemolysis >150 mg/dl = Gross Hemolysis Icterus 1.00 Lipemia 7.00 Glomerular Filtration Rate,C al co 115 >60 ML/MIN/1.73 M2 If patient is -Indian, multiply results by 1.210. Patient must be 18 years of age or more for calculation to be valid. GFR values below 60 ML/MIN/1.73M2 are consistent with chronic kidney disease. Lipid Profile Reviewed date:02/27/2024 03:30:39 PM Interpretation: Performing Lab: Notes/Report: Items were attached to this order: RETAIL LEASING AGENT TRIGLYCERIDES 61 <150 mg/dL Reference Range: <9 years <75 mg/dL 10-19 years <90 mg/dL >20 years <150 mg/dL CHOLESTEROL 185 <200 mg/dl Reference Range: <200 mg/dL HDL CHOLESTEROL GEN4 69 >40 mg/dl LDL (CALC) 104 Desirable Range for: Very High Risk Patients <70 mg/dl High Risk Patients <100 mg/dl Moderately High Risk Patients <130 mg/dl Cholesterol/HDL Ratio co 2.7 LDL-C/HDL co 1.5 0.0-130.0 MG/DL T3 Free Reviewed date:02/27/2024 03:30:39 PM Interpretation: Performing Lab: Notes/Report: Items were attached to this order: RETAIL LEASING AGENT FREE T3 2.61 2.00-4.40 pg/mL T4 Free Reviewed date:02/27/2024 03:30:39 PM Interpretation: Performing Lab: Notes/Report: Items were attached to this order: RETAIL LEASING AGENT FREE T4 (FREE THYROXINE) 1.16 0.93-1.70 ng/dL TSH Reviewed date:02/27/2024 03:30:39 PM Interpretation: Performing Lab: Notes/Report: Items were attached to this order: RETAIL LEASING AGENT TSH (THYROTROPIN) 5.5700 0.2700-4.2000 mIU/mL PSA Reviewed date:02/27/2024 03:30:40 PM Interpretation: Performing Lab: Notes/Report: Items were attached to this order: RETAIL LEASING AGENT PROSTATE SPECIFIC ANTIGEN TOTAL 2.15 <4.50 ng/mL REFERENCE RANGE: MALES <4.4 Reason For Referral No Information Medications Medication SIG (Take, Route, Frequency, Duration) Notes Start Date End Date Status Meloxicam 15 MG 1 tablet Orally Once a day for 90 days 07/13/2022 Active Ocuvite 3 daily Active Lovastatin 40 MG 1 tablet Orally Once a day for 90 days Active Acyclovir 800 MG Oral for 10 Days Active Finasteride 5 MG 1 tablet Orally Once a day for 90 days Active Vitamin C 100 MG Oral daily Ac tive Multivitamins - Oral Acti ve Metamucil 63 Oral Active Lisinopril 20 MG 1 tablet Orally Once a day for 90 days Active Atenolol-Chlorthalidon e 100-25 MG 1 tablet Orally Once a day for 90 days Active Supplements Balance of Natur e Fruit & Veg vitamins Active Relief Factor, 1 pack BID Active Vitamin D 2000 UNIT Oral daily Active [place] 3 1000 MG 1 Oral daily A ctive Tums 500 MG Oral as needed Act carter Immunizations Vaccine Route Administration Date Status Comme nts *Influenza, high dose seasonal (Fluzone) IM Intramuscular 11/15/2020 Administered *Influenza, high dose seasonal (Fluzone) IM Intramuscular 11/15/2021 Administered *Influenza, high dose seasonal (Fluzone) IM Intramuscular 11/15/2022 Administered *Influenza, high dose seasonal (Fluzone) IM Intramuscular 11/12/2023 Administered Influenza, high dose seasonal IM Intramuscular 12/18/2013 Administered Influenza, high dose seasonal IM Intramuscular 11/16/2014 Administered Influenza, high dose seasonal IM Intramuscular 11/01/2015 Administered Influenza, high dose seasonal IM Intramuscular 11/12/2016 Administered Influenza, high dose seasonal IM Intramuscular 11/12/2017 Administered Influenza, high dose seasonal IM Intramuscular 11/07/2018 Administered Influenza, high dose seasonal IM Intramuscular 10/28/2019 Administered Influenza, seasonal, injectable (split), for 3 yrs and up IM Intramuscular 12/05/2011 Administered Influenza, seasonal, injectable (split), for 3 yrs and up OTH Other/Miscellaneous 11/18/[address] [place] [address] Pfizer-BioNTech COVID-19 30mcg/0.3ml (Old) IM Intramuscular 05/24/2020 Administered Pfizer-BioNTech COVID-19 30mcg/0.3ml (Old) IM Intramuscular 06/14/2020 Administered Pfizer-BioNTech COVID-19 30mcg/0.3ml (Old) IM Intramuscular 12/26/2020 Administered Pneumococcal conjugate PCV 13 IM Intramuscular 12/22/2012 Administered Pneumococcal polysaccharide PPV23 IM Intramuscular 12/28/2013 Administered Td (adult), adsorbed OTH Other/Miscellaneous 02/18/2002 Administered Date: 2002 Td, adsorbed, preservative free, adult use, Lf unspecified IM Intramuscular 12/29/2014 Administered VIS provided to patient / guardian 12/29/2014. Social History Tobacco Use: Social History Observation Description Date Details (start date - stop date) Former Smoker NA - NA Tobacco Use/Smoking Question Answer Notes Are you a: former smoker Tobacco use other than smoking: Question Answer Notes Are you an other tobacco user? No Problems Problem Type SNOMED Code ICD Code Onset Dates Problem Status W/U Status Risk Notes Problem Hyperlipidemia (47692973) Hyperlipidemia, unspecified (E78.5) Active confirmed Problem Essential hypertension (91013845) Essential (primary) hypertension (I10) Active confirmed Problem Gout (86776163) Gout, unspecifie d (M10.9) Active confirmed Problem Benign prostatic hypertrophy without outflow obstruction (124261455) Benign prostatic hyperplasia without lower urinary tract symptoms (N40.0) Active confirmed Problem 773060961 GOUTY ARTHROPATH Y (M10.9) Active confirmed Problem Degenerative disorder of macula (687155536) 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) Active confirmed Problem Body mass index 30.00 to 34.99 (255155982362645) BMI 31.0-31.9, ADULT (V85.31) (Z68.31) Active confirmed Problem 414405143 SLAC (SCAPHOLUNATE ADVANCED COLLAPSE) WRIST, RIGHT (M19.131) Active confirmed Problem [id number] ARTHRITIS OF RIGHT WRIST (M19.031) Active confirmed Problem Osteoarthritis of knee (085074502) OSTEOARTHRITIS OF LEFT KNEE (M17.12) Active confirmed Problem Leukocytosis (541270025) LEUKOCYTOSIS NOS (288.60) (D72.829) Active confirmed Problem Benign essential hypertension (4633935) BENIGN ESSENTIAL HYPERTENSION (I10) Active confirmed Problem 816569274203852 ARTHRITIS OF LEF T HAND (M19.042) Active confirmed Problem Osteoarthritis of knee (618094964) OSTEOARTHRITIS OF KNEE, UNILATERAL, LEFT (M17.12) Active confirmed Problem 418692014 IRREGULAR HEART RHYTHM (I49.9) Active confirmed Problem Chondromalacia of patella (33438939) CHONDROMALACIA OF PATELLA, 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) Active confirmed Problem Callosity (547467821) Corns and callosities (L84) Inactive confirmed Problem Cough (45936348) Cough (R05) Inactive confirmed Problem Essential hypertension (05468564) Essential hypertension (I10) Inactive confirmed Comment:BP increased, just increased med, cont same recheck BP 2 weeks, Problem Nuclear senile cataract (460930450) NS (NUCLEAR SCLEROSIS) (H25.10) Inactive confirmed Description:N UCLEAR SCLEROSIS Problem Counseling (045809208) ENCOUNTER FOR EDUCATION (Z71.9) Inactive confirmed Problem [id number] (V03.82) (V03.82) Inactive confirmed Problem Prostate specific antigen measurement (88259493) SCREENING PSA (PROSTATE SPECIFIC ANTIGEN) (Z12.5) Inactive confirmed Problem Depression screening (168373105) SCREENING FOR DEPRESSION (Z13.31) Inactive confirmed Description:D EPRESSION SCREEN (V79.0 Z13.89) Problem Contact hand eczema (015795414) DERMATITIS, CONTACT & OTHER ECZEMA, UNSPECIFIED CAUSE (692.9) (692.9) Inactive confirmed Problem HISTORY OF TOBACCO ABUSE (Z87.891) Inactive confirmed Description:H ISTORY OF TOBACCO USE Problem Dyslipidemia (219574383) DYSLIPIDEMIA (E78.5) Inactive confirmed Problem Glaucoma (30000158) GLAUCOMA ASSOCIATED WITH VASCULAR DISORDER (H40.89) Inactive confirmed Description:G LAUCOMA ASSOCIATED WITH VASCULAR DISORDERS Problem Thrombocytopenia (664559146) THROMBOCYTOPENIA (D69.6) Inactive confirmed Problem Adult health examination (089961106) ENCOUNTER FOR HEALTH MAINTENANCE EXAMINATION (Z00.00) Inactive confirmed Description:H EALTH MAINTENANCE EXAMINATION Problem ZOSTAVAX ONLY INDICATED FOR USE IN PATIENTS 60 YEARS AND OLDER (V04.89) (V04.89) Inactive confirmed Descriptio n:P ROPHYLACTIC VACCINATION AGAINST OTHER VIRAL DISEASES (V04.89) Problem Overweight (559445158) BODY MASS INDEX (BMI) OF 25.0 TO 29.9 (278.02) Inactive confirmed Description:O VERWEIGHT (BMI 25.0-29.9) Problem Dietary management surveillance (370169724) ENCOUNTER FOR DIETARY COUNSELING AND SURVEILLANCE (Z71.3) Inactive confirmed Description:D IETARY COUNSELING Problem Requires vaccination (149184665) ENCOUNTER FOR ZOSTAVAX ADMINISTRATION (Z23) Inactive confirmed Description:P ROPHYLACTIC VACCINATION AGAINST OTHER VIRAL DISEASES (V04.89) Problem Benign prostatic hypertrophy without outflow obstruction (547960658) BENIGN PROSTATIC HYPERTROPHY WITHOUT URINARY OBSTRUCTION (N40.0) Inactive confirmed Sees Dr. Menchaca, Problem Pneumococcal conjugate vaccination (201223501099786) NEED FOR PROPHYLACTIC VACCINATION AGAINST STREPTOCOCCUS PNEUMONIAE (PNEUMOCOCCUS) (Z23) Inactive confirmed Problem Pseudophakia of left eye (9784988580603894 3) PSEUDOPHAKIA, LEFT EYE (Z96.1) Inactive confirmed Problem KERATOCONJUNCTIV I TIS SICCA OF BOTH EYES NOT DUE TO SJOGREN'S SYNDROME (H16.223) Inactive confirmed Problem Shoulder joint pain (452475883) SHOULDER PAIN, RIGHT (M25.511) Inactive confirmed Problem Nonexudative age-related macular degeneration (130675396) NONEXUDATIVE AGE-RELATED MACULAR DEGENERATION (H35.3190) Inactive confirmed Description:M ACULAR DEGENERATION, DRY Problem Obesity (641473224) CLASS 1 OBESITY (E66.9) Inactive confirmed Description:O BESITY, CLASS I (BMI 30.0-34.9) Problem Dermatochalasis of both upper eyelids (8742302618646860 1) DERMATOCHALASIS OF BOTH UPPER EYELIDS (H02.831) Inactive confirmed Problem Current non smoker but past smoking history unknown (finding) (483778362) CURRENT NON-SMOKER (Z78.9) Inactive confirmed Problem Pseudophakia (39379790) PSEUDOPHAKIA (Z96.1) Inactive confirmed Problem Excess skin of eyelid (650248156) CHALASTODERMIA (H02.839) Inactive confirmed Description:D ERMATOCHALASI S Problem Subcapsular glaucomatous flecks (97287419) CATARACT SECONDARY TO GLAUCOMATOUS FLECKS (SUBCAPSULAR) (366.31) (366.31) Inactive confirmed Problem Osteoarthritis (466860871) OSTEOARTHROSIS, GENERALIZED, INVOLVING MULTIPLE SITES (M15.9) Inactive confirmed Comment:condi tion controlled on current regimen, cont. same, Problem Sinus bradycardia (18843567) SINUS BRADYCARDIA (R00.1) Inactive confirmed Chronic asymptomatic bradycardia, Problem Requires vaccination (448942888) INFLUENZA (V04.81) (Z23) Inactive confirmed Description:P ROPHYLACTIC VACCINATION AGAINST INFLUENZA (V04.81) Problem Requires vaccination (972249908) NEED FOR IMMUNIZATION AGAINST INFLUENZA (Z23) Inactive confirmed Description:P ROPHYLACTIC VACCINATION AGAINST INFLUENZA Problem Ulcerative colitis (92043890) ULCERATIVE COLITIS (K51.90) Inactive confirmed Problem Nuclear senile cataract (757967281) NUCLEAR SCLEROSIS, LEFT (H25.12) Inactive confirmed Problem Nuclear senile cataract (946509209) NUCLEAR SCLEROSIS OF LEFT EYE (H25.12) Inactive confirmed Problem Elevated liver enzymes level (566625345) ELEVATED LIVER ENZYMES (R74.8) Inactive confirmed Comment:mild elevation, he thiks its heat related after some dehydration /heat illess the week before this occured, possible etiology vs viremia, recheck in a few weeks, Problem Contact dermatitis (30706891) CONTACT DERMATITIS AND OTHER ECZEMA (L25.9) Inactive confirmed Problem Functional assessment (91629201) ENCOUNTER FOR RISK AND FUNCTIONAL ASSESSMENT OF PATIENT (Z13.9) Inactive confirmed Description: R ISK AND FUNCTIONAL ASSESSMENT Problem Heart rate slow (11450839) SLOW HEART RATE (R00.1) Inactive confirmed Problem Mild intermittent asthma (001381643) MILD INTERMITTENT ASTHMA WITHOUT COMPLICATION (J45.20) Inactive confirmed Comment:condi tion controlled on current regimen, cont. same, Problem Annual health maintenance examination (72904376) HEALTH MAINTENANCE EXAMINATION (Z00.00) Inactive confirmed Problem Inguinal hernia (003068776) HERNIA, INGUINAL (UNILATERAL) (550.90) (K40.90) Inactive confirmed Comment:Doing well. No activity restrictions at present. RTC PRN, Problem Nausea (782642716) Nausea (R11.0) Problem resolved confirmed Problem Screening for malignant neoplasm of colon (814668171) SPECIAL SCREENING FOR MALIGNANT NEOPLASMS OF COLON (V76.51) (V76.51) Problem resolved confirmed Problem Dizziness (426896522) DIZZINESS (R42) Problem resolved confirmed Problem Fatigue (35482448) FATIGUE (R53.83) Problem resolved confirmed Problem Flatulence, eructation and gas pain (392035652) BLOATING (R14.0) Problem resolved confirmed Problem Laceration of right hand (2849406861693388 7) LACERATION OF RIGHT HAND, INITIAL ENCOUNTER (S61.411A) Problem resolved confirmed Problem Pruritic disorders (908169820) EAR ITCH (L29.9) Problem resolved confirmed Problem BITE OR STING BY INSECT WITH INFECTION (W57.XXXA) Problem resolved confirmed Comment:infor med pt that the steroid injection will also help the itching in the ears and his seasonal allergies too., Problem BMI 25-29 - overweight (277401398) BMI 27.0-27.9,ADULT (Z68.27) Problem resolved confirmed Problem Raised prostate specific antigen (127155874) PSA, ELEVATED (790.93) (790.93) Problem resolved confirmed Comment:sees Dr. Menchaca, Problem Body mass index 25-29 - overweight (480625343) BMI 26.0-26.9,ADULT (Z68.26) Problem resolved confirmed Problem Screening for malignant neoplasm of colon (619948369) SPECIAL SCREENING FOR MALIGNANT NEOPLASM OF COLON (Z12.11) Problem resolved confirmed Problem Obese class II (165311578774812) BMI 35.0-35.9,ADULT (Z68.35) Problem resolved confirmed Vital Signs Heart Rate 46 /min 02/13/2024 BP sitting, rig ht arm, standard adult cuff. Oximetry 96 % 11/12/2023 Blood pressure diastolic 65 mm Hg 02/13/2024 BP sitting, right arm, standard adult cuff. Weight-kg 97.52 kg 02/13/2024 BP sitting, rig ht arm, standard adult cuff. Height 69.25 in 02/13/2024 BP sitting, rig ht arm, standard adult cuff. Blood pressure systolic 130 mm Hg 02/13/2024 BP s itting, right arm, standard adult cuff. Weight 215 lbs 02/13/2024 BP sitting, rig ht arm, standard adult cuff. BMI 31.52 kg/m2 02/13/2024 BP sitting, rig ht arm, standard adult cuff. Encounters Encounter Location Date Provider Diagnosis [facility] [address] [place] [id number] 03/18/2023 Batool Cruz ARTHRITIS OF RIGHT WRIST M19.031 [facility] [address] [place] [address] [id number] 03/18/2023 Blair Luceronest OSTEOARTHRITIS OF KNEE, UNILATERAL, LEFT M17.12 [facility] [address] [place] [id number] 05/29/2023 Blair Middlemist OSTEOARTHRITIS OF KNEE, UNILATERAL, LEFT M17.12 [facility] [address], [place] [id number] 08/15/2023 [facility] HEALTH MAINTENANCE EXAMINATION Z00.00 ; DEPRESSION SCREENING Z13.31 ; RISK AND FUNCTIONAL ASSESSMENT Z13.9 ; Essential (primary) hypertension I10 ; DYSLIPIDEMIA E78.5 ; ELEVATED TSH R94.6 ; THROMBOCYTOPENIA D69.6 ; IRREGULAR HEART RHYTHM I49.9 ; SINUS BRADYCARDIA R00.1 ; MILD INTERMITTENT ASTHMA WITHOUT COMPLICATION J45.20 ; Benign prostatic hyperplasia without lower urinary tract symptoms N40.0 ; Gout, unspecified M10.9 ; OSTEOARTHROSIS, GENERALIZED, INVOLVING MULTIPLE SITES M15.9 and MACULAR DEGENERATION (SENILE) OF RETINA H35.30 [facility] [address] [place], [place] [id number] 02/13/2024 Jason Espinosa Essential (primary) hypertension I10 [...] ADULT (V85.31) Z68.31 and ELEVATED LFTS R79.[address] [id number] 11/12/2023 Jason Espinosa BENIGN ESSENTIAL HYPERTENSION I10 and Encounter for immunization Z23 [address] [id number] 02/27/2024 Jason Espinosa ELEVATED LIVER ENZYMES R74.8 Assessments Encounter Date Diagnosis (ICD Code) Assessment Notes Treatment Notes Treatment Clinical Notes Section Notes 02/27/2024 ELEVATED LIVER ENZYMES (ICD-10 - R74.8) 11/12/2023 BENIGN ESSENTIAL HYPERTENSION (ICD-10 - I10) 03/18/2023 ARTHRITIS OF RIGHT WRIST (ICD-10 - M19.031) At this point, he would like to continue to monitor his symptoms. He will work on his range of motion and strength. I will see him back as needed. 03/18/2023 OSTEOARTHRITIS OF KNEE, UNILATERAL, LEFT (ICD-10 - M17.12) The patient has end-stage osteoarthritis of his left knee. Patient states that he is having some difficulty with ambulation and walking. He stopped wearing the brace due to some issues but has been wearing a different 1 that is working better. I discussed with the patient that the only long-term treatment option would be a total knee replacement. We discussed surgery as well as the risk benefits and alternatives as well as the postop course and recovery. After discussion this patient states he is not quite ready to commit to knee replacement surgery. We discussed other options such as the cortisone or gel injection. We discussed the risk and benefit of both of these options. After discussion of all this patient would like to proceed with a gel injection which we will do today in the office 05/29/2023 OSTEOARTHRITIS OF KNEE, UNILATERAL, LEFT (ICD-10 - M17.12) Patient has end-stage osteoarthritis of his left knee. We have given him gel injections as well as cortisone in the past. He states the gel injection and not give him as much relief. I discussed with him that the only long-term treatment option will be a knee replacement. However, that something that he decides when he is ready and not when a surgeon tells him. As long as he is having low symptoms and I would recommend continue with intermittent injections as long as they are giving him relief. He states that currently he is not ready to proceed with surgery he would like to hold off another injection as overall is not terrible. I will see him back on an as-needed basis. 08/15/2023 DEPRESSION SCREENING (ICD-10 - Z13.31) 08/15/2023 HEALTH MAINTENANCE EXAMINATION (ICD-10 - Z00.00) stable exam, lab pending immunizations UTD colonoscopy na 02/13/2024 Essential (primary) hypertension (ICD-10 - I10) condition controlled, continue same 08/15/2023 RISK AND FUNCTIONAL ASSESSMENT (ICD-10 - Z13.9) 02/13/2024 DYSLIPIDEMIA (ICD-10 - E78.5) lab pending, follow up with results 11/12/2023 Encounter for immunization (ICD-10 - Z23) 08/15/2023 Essential (primary) hypertension (ICD-10 - I10) condition controlled, continue same 02/13/2024 ELEVATED TSH (ICD-10 - R94.6) condition controlled, continue same 02/13/2024 LEUKOCYTOSIS NOS (288.60) (ICD-10 - D72.829) 08/15/2023 DYSLIPIDEMIA (ICD-10 - E78.5) lab pending, follow up with results 02/13/2024 THROMBOCYTOPENIA (ICD-10 - D69.6) condition controlled, continue same 08/15/2023 ELEVATED TSH (ICD-10 - R94.6) condition controlled, continue same 08/15/2023 THROMBOCYTOPENIA (ICD-10 - D69.6) condition controlled, continue same 02/13/2024 IRREGULAR HEART RHYTHM (ICD-10 - I49.9) condition controlled, continue same 08/15/2023 IRREGULAR HEART RHYTHM (ICD-10 - I49.9) condition controlled, continue same 02/13/2024 SINUS BRADYCARDIA (ICD-10 - R00.1) unchanged, continue same 08/15/2023 SINUS BRADYCARDIA (ICD-10 - R00.1) unchanged, continue same 02/13/2024 MILD INTERMITTENT ASTHMA WITHOUT COMPLICATION (ICD-10 - J45.20) condition controlled, continue same 08/15/2023 MILD INTERMITTENT ASTHMA WITHOUT COMPLICATION (ICD-10 - J45.20) condition controlled, continue same 02/13/2024 Benign prostatic hyperplasia without lower urinary tract symptoms (ICD-10 - N40.0) condition controlled, continue same 02/13/2024 Gout, unspecified (ICD-10 - M10.9) stable lab, cont same 08/15/2023 Benign prostatic hyperplasia without lower urinary tract symptoms (ICD-10 - N40.0) condition controlled, continue same 08/15/2023 Gout, unspecified (ICD-10 - M10.9) stable lab, cont same 02/13/2024 OSTEOARTHROSIS, GENERALIZED, INVOLVING MULTIPLE SITES (ICD-10 - M15.9) unchanged, continue same 02/13/2024 MACULAR DEGENERATION (SENILE) OF RETINA (ICD-10 - H35.30) unchanged, continue same 08/15/2023 OSTEOARTHROSIS, GENERALIZED, INVOLVING MULTIPLE SITES (ICD-10 - M15.9) unchanged, continue same 08/15/2023 MACULAR DEGENERATION (SENILE) OF RETINA (ICD-10 - H35.30) unchanged, continue same 02/13/2024 Class 1 obesity (ICD-10 - E66.811) 02/13/2024 BMI 31.0-31.9, ADULT (V85.31) (ICD-10 - Z68.31) 02/13/2024 ELEVATED LFTS (ICD-10 - R79.89) 08/15/2023 Other 02/13/2024 Other Plan Of Treatment Pending Test Test Name Order Date ORTHO HAND LEFT 3 VIEW - 02504 ORTHO KNEE BILAT AP STANDING - 84859 ORTHO WRIST RIGHT 3 VIEW - 60999 023 T3 Free 02/07/2022 T4 Free 02/07/2022 Next Appt Details Provider Name:Jason Ackerman edith, 08/12/2024 10:30:00 AM, [address] [facility], [place], [place], [id number], Insurance Providers Payer Name Payer Address Payer Phone Subscriber Number Group Number Insured Name Patient Relationship to Insured Coverage Start Date Coverage End Date [employer] MED[employer]ARE PART B [address] [address] [place] [address] [id number] RIPAARON XIONG Self - patient is the insured [employer] [address] [address] [place] [address] [id number] RIPINGA, AARON Self - patient is the insured [employer] [address] [place] [address] [id number] RIPINGA, AARON Self - patient is the insured SELF PAY [address] [place] [address]34 RIPINGA, AARON Self - patient is the insured [facility] [address] [place] [address] [id number] RIPINGA, AARON Self - patient is the insured Medications Administered Medication Instructions Date of Administration Dosage Notes Kenalog 06/14/2022 80 mg Kenalog 06/14/2022 80 mg Synvisc One 03/18/2023 1 mg Medical (General) History Medical History History ICD Code Problems: BENIGN PROSTATIC H YPERTROPHY WITHOUT URINARY OBSTRUCTION, COMMENTS: sees Dr. Menchaca, ProblemStatus: Active, BLOATING, ProblemStatus: Inactive, CORNS AND CALLOSITIES, ProblemStatus: Ac tive, CURRENT NON-SMOKER, ProblemStatus: Activ e, DYSLIPIDEMIA, ProblemStatus: Active, ENCOUNTER FOR RISK AND FUNCT IONAL ASSESSMENT OF PATIENT, DESCRIPTION: RISK AND FUNCTIONAL ASSESSMENT, ProblemStatus: Active, ESSENTIAL HYPERTENSION, ProblemStatus: A ctive, HEALTH MAINTENANCE EXAMINATION, ProblemS tatus: Active, HISTORY OF TOBACCO ABUSE, DE SCRIPTION: HISTORY OF TOBACCO USE, ProblemStatus: Active, MILD INTERMITTENT ASTHMA WITHOUT COMPLIC ATION, ProblemStatus: Active, NONEXUDATIVE AGE-RELATED MAC ULAR DEGENERATION, DESCRIPTION: MACULAR DEGENERATION, DRY, ProblemStatus: Active, OSTEOARTHROSIS, GENERALIZED, INVOLVING MULTIPLE SITES, ProblemStatus: Active, PSA, ELEVATED (790.93), COMM ENTS: sees Dr. 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
[2024-03-17 17:25] LABS: Troponin I < 0.012 ng/mL (0.000-0.034)
[2024-03-17 18:52] VITALS: BP 112/55; PULSE 89; RESP 18; O2SAT 95
[2024-03-17] MEDS: AZITHROMYCIN 250 MG TABLET 500 MG PO (18:56)
[2024-03-17] MEDS: AMOXICILLIN/CLAVULANATE K 875-125 MG TAB 1 TABLET PO (18:56)
[2024-03-17 19:09] VITALS: BP 109/51; PULSE 87; RESP 19; O2SAT 97
== END 2024-03-17 19:10 | disposition home or self-care (01) ==
PROVIDERS: Nurse Practitioner Family; Emergency Provider Emergency Medicine
DX: J18.9 Pneumonia, unspecified organism (principal); R10.13 Epigastric pain; R74.01 Elevation of levels of liver transaminase levels; Z20.822 Contact with and (suspected) exposure to COVID-19
CPT/HCPCS: 36415; 74177; 76705; 80053; 81001; 83605; 83690; 84484; 85025; 85055; 87637; 96374; 96375; 99284; A9270; J2470; Q9967